=== PATIENT | male | born 1985 | race Caucasian/White ===

== ENCOUNTER 2018-01-05 22:56 | Emergency (ER) | payer SELFPAY ==
[2018-01-05] MEDS ORDERED: 0.9 % SODIUM CHLORIDE 1,000 ML BAG IV ONE (23:04)
--- NOTE | 2018-01-05 23:10 | Emergency Department Record ---
Anxiety - General Stated Complaint: RICARDO/ANXIETY Time Seen by Provider: 01/05/18 23:02 Source: Family, EMS - History of Present Illness Initial Comments: EM and family report that he was at home and went upstairs to take a shower. After his shower he ran down the stairs rapidly and began to breathe rapids and panic. Today it was 96 degrees and he reportedly was outside all day. Also, he has been getting periods of anxiety lately but won't get seen for it. Girlfriend reports he hs been dieting to lose weight and skips his last meal in the evening. 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 The patient's only complaint is that he couldn't breathe this evening. Review of Systems Reviewed: No additional complaints except as noted below Constitutional: Reports: As per HPI. Denies: Chills, Fever, Malaise, Night sweats, Weakness, Weight change Eyes: Reports: As per HPI. Denies: Eye discharge, Eye pain, Photophobia, Vision change ENT: Reports: As per HPI. Denies: Congestion, Dental pain, Ear pain, Epistaxis , Hearing loss, Throat pain Respiratory: Reports: As per HPI. Denies: Cough, Dyspnea, Hemoptysis, Stridor, Wheezes Cardiovascular: Reports: As per HPI. Denies: Arrhythmia, Chest pain, Dyspnea on exertion, Edema, Murmurs, Orthopnea, Palpitations, Paroxysmal nocturnal dyspnea, Rheumatic Fever, Syncope Endocrine: Reports: As per HPI. Denies: Fatigue, Heat or cold intolerance, Polydipsia, Polyuria Gastrointestinal: Reports: As per HPI. Denies: Abdominal pain, Constipation, Diarrhea, Hematemesis, Hematochezia, Melena, Nausea, Vomiting Genitourinary: Reports: As per HPI. Denies: Dysuria, Frequency, Hematuria, Incontinence, Retention, Testicular pain, Testicular mass, Urgency Musculoskeletal: Reports: As per HPI. Denies: Arthralgia, Back pain, Gout, Joint swelling, Myalgia, Neck pain Skin: Reports: As per HPI. Denies: Bruising, Change in color, Change in hair/ nails, Lesions, Pruritus, Rash Neurological: Reports: As per HPI. Denies: Abnormal gait, Confusion, Headache, Numbness, Paresthesias, Seizure, Tingling, Tremors, Vertigo, Weakness Psychiatric: Reports: As per HPI. Denies: Anxiety, Auditory hallucinations, Depression, Homicidal thoughts, Suicidal thoughts, Visual hallucinations Hematological/Lymphatic: Reports: As per HPI. Denies: Anemia, Blood Clots, Easy bleeding, Easy bruising, Swollen glands Physical Exam - General General Appearance: Cooperative, Severe distress (eyes closed, hyperventillating , carpal spasms, tachycardic around the one hundred teens on arrival.) - Head Head exam: Normal inspection - Eye Eye exam: Normal appearance, PERRL Pupils: Normal accommodation - ENT ENT exam: Normal exam, Mucous membranes moist, Normal external ear exam, Normal orophraynx, TM's normal bilaterally Ear exam: Normal external inspection. negative: External canal tenderness Nasal Exam: Normal inspection. negative: Discharge, Sinus tenderness Mouth exam: Normal external inspection, Tongue normal Teeth exam: Normal inspection. negative: Dental caries Throat exam: Normal inspection. negative: Tonsillar erythema, Tonsillar exudate - Neck Neck exam: Normal inspection, Full ROM. negative: Tenderness - Respiratory Respiratory exam: Normal lung sounds bilaterally. negative: Respiratory distress - Cardiovascular Cardiovascular Exam: Normal rhythm, Normal heart sounds, Tachycardia - GI/Abdominal GI/Abdominal exam: Soft, Normal bowel sounds. negative: Distended, Rigid, Tenderness - Rectal Rectal exam: Deferred - exam: Deferred - Extremities Extremities exam: Normal inspection, Full ROM, Normal capillary refill, Other ( carpal spasms). negative: Tenderness - Back Back exam: Reports: Normal inspection, Full ROM. Denies: Muscle spasm, Rash noted, Tenderness - Neurological Neurological exam: Alert, CN II-XII intact, Normal gait, Oriented X3, Reflexes normal. negative: Motor sensory deficit - Psychiatric Psychiatric exam: Anxious, Normal affect, Normal mood - Skin Skin exam: Dry, Intact, Normal color, Warm Course - Reevaluation(s) Reevaluation #1: Discussed with patient the results of lab and xray. She is relieved to see all the normals. Her body often aches all over due to her lupus. She states she can 't take NSAIDS, steroids make her sugar go over 400, she can't tolerate morphine , and dilaudid is the only thing that helps with her pain. She daily takes norco 7.5 liquid 4 times daily but her last dose was 11 hours ago around 1:30 p.m. Friday01-05-18. Her next infusion is due tomorrow at [facility]. She is aware that she will have a repeat troponin in 4 hours. She states ativan would help her rest until then. 01/05/18 23:38 01/05/18 23:39 01/05/18 23:55 Reevaluation #2: 01/06/18 00:00 Patient is much more awake and aware of his surrounding. Hyperventilation has resolved, carpal spasms are resolved, he is drowsy due to the ativan. Awaiting UA to be obtained. Second liter NS infusing. Reevaluation #3: 01/06/18 00:08 EKG: NSR at 89, no acute abnormality. No prior. Reevaluation #4: The patient now is able to tell what happened which is consistent with his family's history of what happened. He is ready to go home to bed. His family states he has had a history of panic attacks but never this severe in the past. 01/06/18 01:02 Medical Decision Making - Management Options MDM Management: No Additional Work-up Planned - Data Complexity MDM Data: Labs Ordered and/or Reviewed - Lab Data Result diagrams: 01/05/18 23:15 01/05/18 23:15 Disposition Disposition: Discharge Clinical Impression: Dehydration, Panic attack Disposition: Home, Self-Care Condition: (1) Good Instructions: Panic Attack (ED), Anxiety (ED), Dehydration (ED) Additional Instructions: Home with significant other. Increase fluid intake, especially in hot weather. Follow up with Dr. Mar in office for recheck in the next week. Quality - Quality Measures Quality Measures: N/A - Blood Pressure Screening Does Patient Have Any of the Following: No Blood Pressure Classification: Pre-Hypertensive BP Reading Systolic Measurement: 133 Diastolic Measurement: 85 Screening for High Blood Pressure: < Normal BP, F/U Not Required > [G8783]
[2018-01-05 23:19] LABS: HEMATOCRIT 40.5 % (42.0-52.0); HEMOGLOBIN 14.2 gm/dl (14.0-18.0); MEAN CORPUSCULAR HEMOGLOBIN 31.2 pg (27-33); MEAN CORPUSCULAR HGB CONC 35.1 g/dl (32-36); PLATELET COUNT 269 K/uL (130-400); RED BLOOD COUNT 4.55 M/uL (4.40-5.70); RED CELL DISTRIBUTION WIDTH 11.7 % (11.5-14.5); WHITE BLOOD COUNT W/O DIFF 5.9 K/uL (4.2-12.2)
[2018-01-05 23:32] LABS: BLOOD UREA NITROGEN 18 mg/dL (6-20); CREATININE 0.9 mg/dL (0.7-1.2); EST GLOMERULAR FILTRATION RATE > 60 mL/min
[2018-01-05 23:34] LABS: GLUCOSE,RANDOM 132 mg/dL (74-109)
[2018-01-05 23:37] LABS: ALB/GLOB RATIO 1.7 (1.1-1.8); ALBUMIN 4.4 g/dL (4.0-5.0); ALKALINE PHOSPHATASE 55 U/L (40-129); ALT/SGPT 13 U/L (<41); AST/SGOT 17 U/L (10.0-50.0)
[2018-01-05] MEDS ORDERED: POTASSIUM CHLORIDE 20 MEQ TABLET PO ONE (23:41)
[2018-01-06 00:36] LABS: URINE BILIRUBIN NEGATIVE (NEGATIVE); URINE BLOOD NEGATIVE (NEGATIVE); URINE GLUCOSE (UA) NEGATIVE (NEGATIVE); URINE KETONE 15 mg/dL (NEGATIVE); URINE LEUKOCYTE ESTERASE NEGATIVE (NEGATIVE); URINE NITRITE NEGATIVE (NEGATIVE); URINE PROTEIN NEGATIVE (NEGATIVE); URINE UROBILINOGEN 0.2 E.U./dL (0.20 - 1.00)
[2018-01-06 00:40] LABS: AMPHETAMINE SCREEN URINE NOT DETECTED; BARBITURATE SCREEN URINE NOT DETECTED; BENZODIAZEPINE SCREEN URINE NOT DETECTED; COCAINE SCREEN URINE NOT DETECTED; METHADONE SCREEN URINE NOT DETECTED; METHAMPHETAMINE SCREEN NOT DETECTED; OPIATE SCREEN URINE NOT DETECTED; OXYCODONE SCREEN URINE NOT DETECTED; PHENCYCLIDINE SCREEN URINE NOT DETECTED; PROPOXYPHENE SCREEN URINE NOT DETECTED; THC SCREEN URINE NOT DETECTED; TRICYCLIC ANTIDEPRESSANT SCRN NOT DETECTED; URINE APPEARANCE CLEAR; URINE COLOR YELLOW
[2018-01-06] MEDS ORDERED: 0.9 % SODIUM CHLORIDE 1,000 ML BAG IV ONE (01:05)
== END 2018-01-06 01:20 | disposition home or self-care (01) ==
LOC: ER 22:56
DX: E86.0 Dehydration (principal); F41.0 Panic disorder [episodic paroxysmal anxiety]; R06.00 Dyspnea, unspecified
CPT/HCPCS: 80053; 80305; 81003; 85027; 85379; 93005; 93010; 96360; 96361; 99284